=== PATIENT | female | born 1955 | race Caucasian/White ===

== ENCOUNTER → 2017-01-17 | Outpatient (CLI) | payer BC ==
[~2017-01-17] MED LIST: CHOLTAB3 PO; CLON0.1T12 PO; FRCT/ PO; GABA-113 PO; GLUCTAB7 PO; LEVO75TA5 PO; METH750T PO; MULTTAB58 PO; NXM/40 PO; OXYC1TAB3 PO; TRAM-453 PO; TRIATAB3 PO; VITA100C4 PO
[2017-01-17 15:12] LABS: ALT/SGPT 18 U/L (12-78); BLOOD UREA NITROGEN 20 mg/dl (7-18); BUN/CREATININE RATIO 27.7 (10-20); CALCIUM 9.4 mg/dl (8.5-10.1); CARBON DIOXIDE 22 mmol/L (21-32); CHLORIDE 110 mmol/L (98-107); CHOLESTEROL 185 mg/dl (0-200); CREATININE 0.71 mg/dl (0.60-1.20); GLUCOSE 113 mg/dl (70-99); POTASSIUM 3.6 mmol/L (3.5-5.1); SODIUM 141 mmol/L (136-145); TRIGLYCERIDES 218 mg/dl (0-150); VERY LOW DENSITY LIPOPROT CALC 44 mg/dl
[2017-01-17 15:22] LABS: ALB/GLOB RATIO 1.2 (0.9-2); ALKALINE PHOSPHATASE 96 U/L (45-117); AST/SGOT 15 U/L (15-37); CHOLESTEROL/HDL RATIO 3.8; HDL CHOLESTEROL 49 mg/dl; LDL CHOLESTEROL CALCULATED 92 mg/dl
== END | disposition home or self-care (01) ==
LOC: C.LAB1850 13:51
PROVIDERS: ATTEND Internal Medicine Cardiovascular Disease
DX: R73.9 Hyperglycemia, unspecified (principal); E03.9 Hypothyroidism, unspecified

== ENCOUNTER → 2017-01-23 | Outpatient (CLI) | payer BC ==
[~2017-01-23] MED LIST changes: +GADAVIST IV PRN
--- NOTE | 2017-01-23 13:19 | DIAGNOSTIC IMAGING REPORT ---
MRI OF THE LUMBAR SPINE WITH AND WITHOUT CONTRAST CLINICAL HISTORY: Lumbar stenosis. Sacral radiculopathy. COMPARISON STUDY: Lumbar spine MRI December 28, 2011. TECHNIQUE: Utilizing a 1.5 Mari magnet and dedicated coil, multiplanar, multiecho imaging of the lumbar spine was performed before and after uneventful IV administration of 7 mL of Gadavist. FINDINGS: For purposes of numbering on this exam, the L5-S1 disc space is assigned to axial image 27 of 30. A multilevel laminectomy is noted. There are are bilateral pedicle screws at the T11, T12, L3, L4, L5 and S1 levels with a left-sided pedicle screw at the L2 level. No intracanalicular mass or fluid collection is present. Conus terminates at the L1 level. Evaluation is compromised by susceptibility artifact related to the hardware. Paravertebral soft tissues are unremarkable. Note is made of a 2.2 cm right renal cyst. Note is made of disc space narrowing with mild disc bulge and facet arthrosis at T10-T11 that likely results in mild narrowing of the central canal and right lateral recess. L1-2: There is marked disc space narrowing. Central canal and neural foramen are patent. L2-3: There is marked disc space narrowing with mild disc bulge. Central canal and neural foramen are patent. L3-4: There is marked disc space narrowing with disc bulge. Central canal and neural foramen are patent. L4-5: There is marked disc space narrowing. Central canal is patent. Neural foramen are likely patent. L5-S1: There is marked disc space narrowing with a central disc protrusion. There is mild during of the central canal. Neural foramen are suboptimally assessed but there is probable mild to moderate bilateral neural foraminal stenosis. IMPRESSION: 1. Status post multilevel laminectomy with a T11-S1 fusion. 2. No severe central canal stenosis. Mild central canal narrowing at T10-T11 and L5-S1, as described above. 3. Suboptimal evaluation of the neural foramen due to susceptibility artifact from hardware. Suspected mild to moderate multilevel neural foraminal stenosis, as detailed above. Electronically signed by: Vitaliy Golden M.D. 01/23/2017 1:17 PM Dictated Date/Time: 01/23/2017 11:35 AM
== END | disposition home or self-care (01) ==
LOC: C.MRI 10:13
PROVIDERS: ATTEND Psychiatry & Neurology Neurology
DX: M48.061 Spinal stenosis, lumbar region without neurogenic claudication (principal); M54.18 Radiculopathy, sacral and sacrococcygeal region

== ENCOUNTER 2018-10-20 12:20 | Inpatient (IN) ==
--- OUTSIDE RECORDS SUMMARY | 2018-10-20 12:21 | External Medical Summary | Continuity of Care Document ---
:1955 Author Name Ruiz Singletary, Provider Address Unavailable Unavailable , Care Team Providers Name Role Phone Kita Devine III, M.D. Unavailable [email or web address] Constantino Razo M.D. Unavailable [email or web address] Zander FERREIRA Unavailable Unavailable Unavailable Unavailable Unavailable Problems Carpal tunnel syndrome (354.0) (G56.00) Sacral radiculopathy (724.4) (M54.18) Tobacco use (305.1) (Z72.0) Chronic musculoskeletal pain (729.1) (M79.18) Lumbar canal stenosis (724.02) (M48.061) Hypertension (401.9) (I10) Hyperglycemia (790.29) (R73.9) Hypothyroidism (244.9) (E03.9) Current every day smoker (305.1) (F17.200) Smokes less than 1/2 pack per day (305.1) (F17.210) Common migraine without aura (346.10) (G43.009) Allergies and Adverse Reactions Ativan TABS (Allergy) CeleBREX CAPS (Allergy) Medications Methocarbamol 750 MG Oral Tablet; TAKE 1 TABLET 3 TIME S DAILY. Nilson HOLDEN M.D. E. PJenelle Quantity: 270 Refills: 1 Levothyroxine Sodium 75 MCG Oral Tablet; TAKE 1 TABLET DAILY. Gemini Razo Quantity: 90 Refills: 3 Gabapentin 600 MG Oral Tablet; TAKE 1 TABLET 4 TIMES DAILY. Nilson HOLDEN M.D. E. PJenelle Quantity: 360 Refills: 1 Triamterene-HCTZ 37.5-25 MG Oral Capsule; 1 tablet by mouth every other day Gemini Razo Quantity: 45 Refills: 3 cloNIDine HCl - 0.1 MG Oral Tablet; TAKE 1 TABLET AT B EDTIME. Gemini Razo Quantity: 90 Refills: 3 Meloxicam 7.5 MG Oral Tablet; Take 1 tablet daily Zander Devine III E. P. Start: 18-Feb-2011 Quantity: 90 Refills: 1 Glucosamine-Chondroitin TABS; Take 1 tablet twice daily Refills: 0 Bcsxeavcsg-KUKV-Yeyietwl 50-325-40 MG Oral Tablet; ELFGEO E 1 TABLET Daily PRN Nilson HOLDEN M.D. E. P. Quantity: 90 Refills: 1 Esomeprazole Magnesium 40 MG Oral Capsul e Delayed Release; TAKE 1 CAPSULE DAILY. Gemini Razo Start: 23-May-2011 Quantity: 90 Refills: 3 traMADol HCl - 50 MG Oral Tablet; TAKE 1 -2 TABLETS up to 3 times daily as needed for joint and back pain Gemini Razo Start: 24-Jun-2013 Quantity: 180 Refills: 3 Topiramate 50 MG Oral Tablet; Take 1 tablet twice daily Nilson HOLDEN M.D. E. P. Start: 27-Oct-2015 Quantity: 180 Refills: 1 Procedures History of Neuroplasty Decompression Median Status: Completed 30-Jun-2010 0:00 Nerve At Carpal Tunnel Immunizations Influenza On: 18-Jan-2011 13:30 Lot #: [id number], [employer] Fluzone INJ On: 31-Mar-2014 Zoster (Zostavax) On: 31-Mar-2014 Influenza (Whole) On: 15-Jan-2015 10:49 Lot #: [id number], [employer] Fluzone High-Dose Intramuscular Suspension On: 14-Jan-2016 1 2:06 Lot #: [id number], [employer] Fluzone High-Dose Intramuscular Suspension On: 17-Jan-2017 13 :48 Lot #: [id number], [employer] Fluzone Quadrivalent 0.5 ML Intramuscular Suspension On: Jan-2018 13:36 Lot #: [id number], [employer] Family History Mother No pertinent family history (V49.89) (Z78.9) Status: Active Social History - Smoking Status Current every day smoker Plan of Treatment Planned Encounters Appointment; Camilo Razo M.D. Start: 19-Feb-2019 13:00 Request Planned Observations Planned Goals not documented Results No Known Results Results not documented Encounters Appointment; Camilo Razo M.D. 13-Feb-2018 12:45 Encounter Diagnosis: Problem not documented Appointment; Kita Devine III, M.D. 11-Oct-2017 15:30 Encounter Diagnosis: Problem not documented Appointment; Camilo Razo M.D. 17-Jan-2017 13:00 Encounter Diagnosis: Problem not documented Appointment; Kita Devine III, M.D. 04-Jan-2017 15:00 Encounter Diagnosis: Problem not documented Appointment; Kita Devine III, M.D. 15-Dec-2016 11:30 Encounter Diagnosis: Problem not documented Appointment; Camilo Razo M.D. 19-Feb-2019 13:00 Encounter Diagnosis: Problem not documented
--- NOTE | 2018-10-20 12:32 | CT Scan Report ---
HEAD CT NONCONTRAST CT DOSE: 623.48 mGy.cm HISTORY: Stroke symptoms. Stroke evaluation TECHNIQUE: Multiaxial CT images of the head were performed without the use of intravenous contrast. A utomated exposure control was utilized for this study. A dose lowering technique was utilized adheri ng to the principles of ALARA. Comparison: None. Findings: The paranasal sinuses and mastoid air cells are clear. The calvarium and skull base are int act. The ventricles and sulci are within normal limits. There is no mass, hematoma, midline shift, or acute infarct. Impression: No acute intracranial abnormality. Electronically signed by: Jere Muniz M.D. 10/20/2018 12:31 PM
[2018-10-20] MEDS ORDERED: ASPIRIN CHEW 324 MG ONE (12:45)
[2018-10-20 12:48] LABS: Basophils # (auto) 0.03 K/uL (0-0.2); Basophils % (auto) 0.5 %; Eosinophils # (auto) 0.14 K/uL (0-0.5); Eosinophils % (auto) 2.2 %; Hematocrit (blood only) 46.1 % (37-47); Hemoglobin 15.5 g/dL (12.0-16.0); Immature Granulocytes # (auto) 0.01 K/uL (0.00-0.02); Immature Granulocytes % (auto) 0.2 %; Lymphocytes # (auto) 2.17 K/uL (1.2-3.4); Lymphocytes % (auto) 34.4 %; Mean Corpuscular Hgb Conc 33.6 g/dL (32-36); Mean Corpuscular Volume 102.2 fL (80-100); Mean Platelet Volume 9.2 fL (7.4-10.4); Monocytes # (auto) 0.58 K/uL (0.11-0.59); Monocytes % (auto) 9.2 %; Neutrophils # (auto) 3.37 K/uL (1.4-6.5); Neutrophils % (auto) 53.5 %; Platelet Count 258 K/uL (130-400); RDW Coefficient of Variation 12.5 % (11.5-14.5); RDW Standard Deviation 46.6 fL (36.4-46.3); Red Blood Count 4.51 M/uL (4.2-5.4)
[2018-10-20 12:52] LABS: iSTAT Creatinine 0.9 mg/dl (0.6-1.3); iSTAT Hemoglobin 15.3 g/dl (12.0-16.0); iSTAT Ionized Calcium 1.18 mmol/l (1.12-1.32); iSTAT Potassium 4.5 mEq/L (3.3-5.0)
[2018-10-20] MEDS ORDERED: ASPIRIN CHEW 324 MG PO STA (12:57)
[2018-10-20] MEDS ORDERED: SODIUM CHLORIDE 0.9% 1000ML 1,000 ML IV ONE ×2 (12:57→15:17)
--- NOTE | 2018-10-20 13:08 | XRay Report ---
XR chest 1V portable HISTORY: weakness COMPARISON: Chest 10/20/2018. FINDINGS: Thoracolumbar posterior fusion spinal rods are noted. Distal resection of the right clavicl e. The lungs are clear. The heart is normal in size. No pleural effusions. No pneumothorax. IMPRESSION: No acute process. Electronically signed by: Jere Muniz M.D. 10/20/2018 1:06 PM
[2018-10-20 13:17] LABS: Alanine Aminotransferase 20 U/L (12-78); Albumin Globulin Ratio 1.1 (0.9-2); Albumin Level 3.8 gm/dl (3.4-5.0); Alkaline Phosphatase 104 U/L (45-117); BUN Creatinine Ratio 23.2 (10-20); Bilirubin,Total 0.5 mg/dl (0.2-1); Blood Urea Nitrogen 21 mg/dl (7-18); Calcium 9.3 mg/dl (8.5-10.1); Carbon Dioxide 27 mmol/L (21-32); Chloride 110 mmol/L (98-107); Creatinine Clr Calc Pharmacy 63.6 ml/min; Est GFR (African American) 76.3; Est GFR (Non-African American) 65.8; Globulin 3.5 gm/dl (2.5-4.0); Glucose 112 mg/dl (70-99); Total Protein 7.3 gm/dl (6.4-8.2); Troponin I < 0.015 ng/ml (0-0.045)
[2018-10-20 13:24] LABS: INR 1.1 (0.9-1.1); Partial Thromboplastin Time 26.5 Seconds (21.0-31.0); Prothrombin Time 11.4 Seconds (9.0-12.0)
[2018-10-20 13:30] LABS: Aspartate Aminotransferase 14 U/L (15-37); Magnesium 2.2 mg/dl (1.8-2.4); Potassium 4.3 mmol/L (3.5-5.1); Sodium 144 mmol/L (136-145)
[2018-10-20] MEDS ORDERED: OPTIRAY 320 125ml IV PRN (14:09)
--- NOTE | 2018-10-20 14:38 | CT Scan Report ---
HEAD & NECK CTA HISTORY: aphasia, R weakness TECHNIQUE: Multiaxial CT images of the head were performed following the intravenous administration o f contrast to evaluate the major cerebral vessels. Multiaxial CT images of the neck were also perform ed following the intravenous administration of contrast to evaluate the major cervical vessels. Maxim um intensity projection images were also obtained. A dose lowering technique was utilized adhering to the principles of ALARA. COMPARISON: Head CT 10/20/2018. FINDINGS: There is no mass, hematoma, midline shift, or acute infarct. Visualized intracranial internal carotid arteries, distal vertebral arteries, and basilar artery are widely patent. There is no significant s tenosis, occlusion, or aneurysm seen within the bilateral ACAs, MCAs, or sewer pipe layer. The posterior cerebral arteries are fed primarily through the posterior communicating arteries consistent with a normal min iant. The aortic arch and proximal great vessels are widely patent. There is no significant stenosis, occ lusion, or dissection identified within the bilateral common carotid, internal carotid, or vertebral arteries. Incidental note is made of an aberrant right subclavian artery. Mild calcified plaque withi n the right carotid bifurcation. IMPRESSION: 1. No significant stenosis, occlusion, or aneurysm within the [place]. 2. No significant stenosis, occlusion, or dissection identified within the carotid or vertebral arter ies.. 3. Incidental note is made of an aberrant right subclavian artery. Electronically signed by: Jere Muniz M.D. 10/20/2018 2:37 PM
--- NOTE | 2018-10-20 14:38 | CT Scan Report ---
HEAD & NECK CTA HISTORY: aphasia, R weakness TECHNIQUE: Multiaxial CT images of the head were performed following the intravenous administration o f contrast to evaluate the major cerebral vessels. Multiaxial CT images of the neck were also perform ed following the intravenous administration of contrast to evaluate the major cervical vessels. Maxim um intensity projection images were also obtained. A dose lowering technique was utilized adhering to the principles of ALARA. COMPARISON: Head CT 10/20/2018. FINDINGS: There is no mass, hematoma, midline shift, or acute infarct. Visualized intracranial internal carotid arteries, distal vertebral arteries, and basilar artery are widely patent. There is no significant s tenosis, occlusion, or aneurysm seen within the bilateral ACAs, MCAs, or stitch cleaner. The posterior cerebral arteries are fed primarily through the posterior communicating arteries consistent with a normal min iant. The aortic arch and proximal great vessels are widely patent. There is no significant stenosis, occ lusion, or dissection identified within the bilateral common carotid, internal carotid, or vertebral arteries. Incidental note is made of an aberrant right subclavian artery. Mild calcified plaque withi n the right carotid bifurcation. IMPRESSION: 1. No significant stenosis, occlusion, or aneurysm within the [place]. 2. No significant stenosis, occlusion, or dissection identified within the carotid or vertebral arter ies.. 3. Incidental note is made of an aberrant right subclavian artery. Electronically signed by: Jere Muniz M.D. 10/20/2018 2:37 PM
--- NOTE | 2018-10-20 14:52 | Emergency Department Note ---
Entered by Shabana Mcclendon acting as a scribe for Abhinav Leal M.D. History of Present Illness General Chief complaint: Stroke Alert Stated complaint: stroke alert Source: patient and EMS Mode of arrival: EMS Limitations: no limitations History of Present Illness Provider complaint: Stroke Onset (ago): hour(s) (this morning) Location: head Radiation: non-radiation Pain Consistency: + other (episode) Maximum Pain Intensity: 0 Quality: + other (stroke) Associated symptoms: + weakness (difficulty moving right side) and + other (Additional symptoms: difficulty speaking, upset stomach. Denies: pain) Treatments prior to arrival: none The patient is a 62 year old female with no significant past medical history who presents to the Emergency Room with complaints of an episode of a stroke occurring this morning. Per EMS, the patient's roommate stated that the patient went to bed around 0100 this morning, which was normal for her. The roommate reportedly noticed that the patient had difficulty speaking and moving her right side when she woke up around 1045. EMS was subsequently called and a stroke alert was made. The patient reports that her stomach was upset earlier today but denies any pain and trauma. EMS notes that she is not on blood thinners and other platelet agents. Home Medications Home Medications Medication Instructions Recorded Confirmed Type ascorbic acid (vitamin C) [Vitamin 1,000 mg PO DAILY 10/20/18 10/20/18 History C] calcium carbonate [Calcium 600] 600 mg PO DAILY 10/20/18 10/20/18 History clonidine HCl 0.1 mg PO HS 10/20/18 10/20/18 History esomeprazole magnesium 40 mg PO DAILY 10/20/18 10/20/18 History gabapentin 60 mg PO QID 10/20/18 10/20/18 History glucos sul [id number] 1 cap PO DAILY 10/20/18 10/20/18 History [Glucosamine Chondroitin] levothyroxine 75 mcg PO DAILY 10/20/18 10/20/18 History meloxicam 7.5 mg PO DAILY 10/20/18 10/20/18 History methocarbamol 750 mg PO TID 10/20/18 10/20/18 History multivitamin 1 tab PO DAILY 10/20/18 10/20/18 History topiramate 50 mg PO BID 10/20/18 10/20/18 History tramadol 50 - 100 mg PO TID PRN 10/20/18 10/20/18 History triamterene-hydrochlorothiazid 1 tab PO DAILY 10/20/18 10/20/18 History vitamin E 0 unit PO DAILY 10/20/18 10/20/18 History Allergies Allergy/AdvReac Type Severity Reaction Status Date / Time celecoxib AdvReac Unknown elevates Unverified 10/20/18 12:59 blood pressure rofecoxib AdvReac Unknown elevates Unverified 10/20/18 12:59 blood pressure Past Med/Surg History Medical History No significant past medical history Social History Preferred Language: Citizen Of The [place] Communication Ability: Effective Communication Ability Comment: some slurring, able to sign name Outpatient Physical Therapist Assistant Required: No Beliefs That Will Affect Care: None marital status: single Current Living Situation: Significant Other Current Living Situation Comment: Lives with Alexandria Gordon, friend current occupational status: retired Other Information That Helps Us Care for You: No Feels Safe at Home: Yes Safety Concerns: Feels Safe At This Time Smoking Status: Current every day smoker Tobacco Type: cigarettes Cigarettes Per Day: 6 tp 7 Do You Dip or Chew Tobacco: No Second Hand Exposure: No Tobacco Cessation Education Requested by Patient: No Hx Alcohol Use: Yes Hx Substance Use: No Review of Systems See HPI for pertinent positives & negatives. and A total of 10 systems reviewed and were otherwise negative Physical Exam Vital Signs Vital Signs - 24 hr 10/20/18 12:06 10/20/18 12:08 10/20/18 12:19 Temperature 36.7 C 36.8 C Temperature Source Oral Oral Sepsis Recent Fever Within 48 Hours No Sepsis New/Unexplained Change in Mental Status No Sepsis Action Taken by Nursing No Action Required Pulse Rate 66 Pulse Rate [Right Finger] 62 Pulse Rate from SpO2 Sensor Pulse Strength Normal Respiratory Rate 58 H 18 Respiratory Effort / Characteristics Non-Labored Spontaneous Non-Labored Spontaneous Respiratory Depth Normal Normal Respiratory Pattern Regular Regular Blood Pressure 154/96 H Blood Pressure [Left Arm] 145/71 H Blood Pressure Mean 115 Blood Pressure Mean [Left Arm] 95 Blood Pressure Position Lying Blood Pressure Position [Left Arm] Lying Pulse Oximetry 97 98 97 Oxygen Delivery Method Room Air Room Air Room Air 10/20/18 12:36 10/20/18 12:37 10/20/18 12:41 Temperature 36.7 C Temperature Source Sepsis Recent Fever Within 48 Hours Sepsis New/Unexplained Change in Mental Status Sepsis Action Taken by Nursing Pulse Rate 60 61 58 L Pulse Rate [Right Finger] Pulse Rate from SpO2 Sensor 61 61 59 L Pulse Strength Respiratory Rate 15 16 16 Respiratory Effort / Characteristics Respiratory Depth Respiratory Pattern Blood Pressure 154/96 H 145/71 H 166/85 H Blood Pressure [Left Arm] Blood Pressure Mean 115 95 112 Blood Pressure Mean [Left Arm] Blood Pressure Position Blood Pressure Position [Left Arm] Pulse Oximetry 96 98 97 Oxygen Delivery Method Room Air Room Air Room Air 10/20/18 12:50 10/20/18 13:00 10/20/18 13:10 Temperature Temperature Source Sepsis Recent Fever Within 48 Hours Sepsis New/Unexplained Change in Mental Status Sepsis Action Taken by Nursing Pulse Rate 60 63 59 L Pulse Rate [Right Finger] Pulse Rate from SpO2 Sensor 59 L 61 57 L Pulse Strength Respiratory Rate 16 17 17 Respiratory Effort / Characteristics Respiratory Depth Respiratory Pattern Blood Pressure 154/101 H 146/99 H 181/103 H Blood Pressure [Left Arm] Blood Pressure Mean 118 114 129 Blood Pressure Mean [Left Arm] Blood Pressure Position Blood Pressure Position [Left Arm] Pulse Oximetry 98 97 98 Oxygen Delivery Method Room Air Room Air 10/20/18 13:20 10/20/18 13:22 10/20/18 13:30 Temperature 36.8 C Temperature Source Sepsis Recent Fever Within 48 Hours Sepsis New/Unexplained Change in Mental Status Sepsis Action Taken by Nursing Pulse Rate 70 65 55 L Pulse Rate [Right Finger] Pulse Rate from SpO2 Sensor 65 63 54 L Pulse Strength Respiratory Rate 25 H 13 16 Respiratory Effort / Characteristics Respiratory Depth Respiratory Pattern Blood Pressure 170/101 H Blood Pressure [Left Arm] Blood Pressure Mean 124 Blood Pressure Mean [Left Arm] Blood Pressure Position Blood Pressure Position [Left Arm] Pulse Oximetry 98 98 99 Oxygen Delivery Method 10/20/18 13:31 10/20/18 13:32 10/20/18 13:38 Temperature Temperature Source Sepsis Recent Fever Within 48 Hours Sepsis New/Unexplained Change in Mental Status Sepsis Action Taken by Nursing Pulse Rate 60 58 L 56 L Pulse Rate [Right Finger] Pulse Rate from SpO2 Sensor 58 L 58 L 54 L Pulse Strength Respiratory Rate 16 19 17 Respiratory Effort / Characteristics Respiratory Depth Respiratory Pattern Blood Pressure 183/125 H 183/102 H Blood Pressure [Left Arm] Blood Pressure Mean 144 129 Blood Pressure Mean [Left Arm] Blood Pressure Position Blood Pressure Position [Left Arm] Pulse Oximetry 98 99 99 Oxygen Delivery Method Room Air Room Air 10/20/18 13:40 10/20/18 13:41 10/20/18 14:15 Temperature 36.7 C Temperature Source Sepsis Recent Fever Within 48 Hours Sepsis New/Unexplained Change in Mental Status Sepsis Action Taken by Nursing Pulse Rate 59 L 60 81 Pulse Rate [Right Finger] Pulse Rate from SpO2 Sensor 54 L 57 L 120 H Pulse Strength Respiratory Rate 16 17 16 Respiratory Effort / Characteristics Respiratory Depth Respiratory Pattern Blood Pressure 192/99 H Blood Pressure [Left Arm] Blood Pressure Mean 130 Blood Pressure Mean [Left Arm] Blood Pressure Position Blood Pressure Position [Left Arm] Pulse Oximetry 100 100 79 L Oxygen Delivery Method Room Air Room Air Room Air 10/20/18 14:17 10/20/18 14:20 10/20/18 14:30 Temperature Temperature Source Sepsis Recent Fever Within 48 Hours Sepsis New/Unexplained Change in Mental Status Sepsis Action Taken by Nursing Pulse Rate 58 L 60 65 Pulse Rate [Right Finger] Pulse Rate from SpO2 Sensor 55 L 59 L 61 Pulse Strength Respiratory Rate 16 18 13 Respiratory Effort / Characteristics Respiratory Depth Respiratory Pattern Blood Pressure 179/96 H 170/95 H Blood Pressure [Left Arm] Blood Pressure Mean 123 120 Blood Pressure Mean [Left Arm] Blood Pressure Position Blood Pressure Position [Left Arm] Pulse Oximetry 100 99 98 Oxygen Delivery Method Room Air Room Air 10/20/18 14:31 10/20/18 15:11 10/20/18 15:21 Temperature Temperature Source Sepsis Recent Fever Within 48 Hours Sepsis New/Unexplained Change in Mental Status Sepsis Action Taken by Nursing Pulse Rate 60 62 64 Pulse Rate [Right Finger] Pulse Rate from SpO2 Sensor 59 L 56 L 56 L Pulse Strength Respiratory Rate 16 17 19 Respiratory Effort / Characteristics Respiratory Depth Respiratory Pattern Blood Pressure 169/98 H 145/102 H 176/113 H Blood Pressure [Left Arm] Blood Pressure Mean 121 116 134 Blood Pressure Mean [Left Arm] Blood Pressure Position Blood Pressure Position [Left Arm] Pulse Oximetry 98 99 100 Oxygen Delivery Method GENERAL: Awake, alert, in no distress HENT: Normocephalic, atraumatic. EYES: Normal conjunctiva. Sclera non-icteric. PERRL. NECK: Supple. No nuchal rigidity. RESPIRATORY: Clear to auscultation. No wheezes. Normal respiratory effort. CARDIAC: Normal rate. Normal rhythm. Extremities warm and well perfused. GI: Soft, non-distended. No tenderness to palpation. No rebound or guarding. No masses. RECTAL: Deferred. MUSCULOSKELETAL: Atraumatic. Chest examination reveals no tenderness. LOWER EXTREMITIES: Calves are equal size bilaterally and non-tender. No edema NEURO: Slight R facial droop. Moderate dysarthria. Slight weakness of the right upper and lower extremity. Slight decreased sensation of left face. Decreased sensation of LUE -reported chronic. SKIN: Warm and dry. No rash or jaundice noted. Course 1213: I notified Sharmin Jimenez of the patient's case. 1222: The patient was immediately sent to CT upon arrival. 1227: The patient was evaluated in room B1, and a complete history and physical examination were performed. 1238: I reviewed the patient's case with Dr. Doty. She recommended aspirin and a stroke workup. 1445: I [facility] the [facility] Dr. Najera will evaluate the patient for further management. 1453: I reviewed the patient's case with Dr. Johnny Campbell [facility]. Dr. Turner recommended touching base with [place] again. 1516: I reviewed the patient's case with Dr. Doty. Dr. Doty recommends a fluid bolus and Plavix. 1715: I checked on the patient and updated her on her MRI results. Consultations Consultation #1: 1213: I notified Sharmin Jimenez of the [place] [facility]'s case. Time: 12:13 Consultation #2: I reviewed the patient's case with Dr. Doty. She recommended aspirin and a stroke workup. Time: 12:38 Consultation #3: I reviewed the patient's case [facility]. Dr. Najera will evaluate the patient for further management. Time: 14:45 Additional Consultation(s): 1453: I reviewed the patient's case with Dr. Johnny Campbell [facility]. Dr. Turner recommended touching base with [place] again. 1516: I reviewed the patient's case with Dr. Doty. Dr. Doty recommends a fluid bolus and Plavix. Administered Medications Ioversol (Optiray 320 125ml) 119 ml IV ONCE PRN PRN Reason: Interaction Checking Stop: 10/24/18 14:08 Last Admin: 10/20/18 14:09 Dose: 119 ml Documented by: [id number] Discontinued Medications Aspirin (Aspirin) Confirm Administered Dose 324 mg .ROUTE .STK-MED ONE Stop: 10/20/18 12:46 Last Admin: 10/20/18 13:25 Dose: Not Given Documented by: [id number] Aspirin (Aspirin) 324 mg PO NOW STA Stop: 10/20/18 12:58 Last Admin: 10/20/18 12:57 Dose: 324 mg Documented by: [id number] Clopidogrel Bisulfate (Plavix) 600 mg PO NOW STA Stop: 10/20/18 15:19 Last Admin: 10/20/18 17:15 Dose: Not Given Documented by: [id number] Clopidogrel Bisulfate (Plavix) Confirm Administered Dose 600 mg .ROUTE .STK-MED ONE Stop: 10/20/18 17:13 Last Admin: 10/20/18 17:15 Dose: 600 mg Documented by: [id number] Sodium Chloride (Nss 1000ml) 1,000 mls @ 999 mls/hr IV .Q1H1M ONE Stop: 10/20/18 13:57 Last Infusion: 10/20/18 14:28 Dose: 0 mls/hr Documented by: [id number] Admin: 10/20/18 12:57 Dose: 999 mls/hr Documented by: [id number] Sodium Chloride (Nss 1000ml) 1,000 mls @ 999 mls/hr IV .Q1H1M ONE Stop: 10/20/18 16:17 Last Admin: 10/20/18 15:37 Dose: 999 mls/hr Documented by: [id number] Tramadol HCl (Ultram) 50 mg PO NOW STA Stop: 10/20/18 17:03 Last Admin: 10/20/18 17:15 Dose: 50 mg Documented by: [id number] Medical Decision Making Differential Diagnosis Differential diagnosis: Etiologies such as metabolic, infection, hypoglycemia, electrolyte abnormalities, cardiac sources, intracerebral event, toxicologic, neurologic, as well as others were entertained. Medical Records Attestation: I reviewed the patient's medical records. Home Medications Current Medication List: was personally reviewed by me Laboratory Data Attestation: I reviewed the patient's lab results. Result diagrams: 10/20/18 12:32 10/20/18 12:32 Lab Results 10/20/18 10/20/18 10/20/18 Range/Units 12:08 12:32 12:32 WBC 6.30 (4.8-10.8) K/uL RBC 4.51 (4.2-5.4) M/uL Hgb 15.5 (12.0-16.0) g/dL POC Hgb (12.0-16.0) g/dl Hct 46.1 (37-47) % POC Hct (37-47) % MCV 102.2 H (80-100) fL MCH 34.4 H (25-34) pg MCHC 33.6 (32-36) g/dL RDW Std Deviation 46.6 H (36.4-46.3) fL RDW Coeff of [place] 12.5 (11.5-14.5) % Plt Count 258 (130-400) K/uL MPV 9.2 (7.4-10.4) fL Immature Gran % (Auto) 0.2 % Neut % (Auto) 53.5 % Lymph % (Auto) 34.4 % Frio % (Auto) 9.2 % Eos % (Auto) 2.2 % Baso % (Auto) 0.5 % Immature Gran # (Auto) 0.01 (0.00-0.02) K/uL Neut # (Auto) 3.37 (1.4-6.5) K/uL Lymph # (Auto) 2.17 (1.2-3.4) K/uL Frio # (Auto) 0.58 (0.11-0.59) K/uL Eos # (Auto) 0.14 (0-0.5) K/uL Baso # (Auto) 0.03 (0-0.2) K/uL PT 11.4 (9.0-12.0) Seconds INR 1.1 (0.9-1.1) APTT 26.5 (21.0-31.0) Seconds PTT Ratio 1.0 POC Sodium (135-144) mEq/L Sodium (136-145) mmol/L POC Potassium (3.3-5.0) mEq/L Potassium (3.5-5.1) mmol/L POC Chloride (101-112) mEq/L Chloride (98-107) mmol/L Carbon Dioxide (21-32) mmol/L POC Total CO2 (24-31) mEq/l Anion Gap (3-11) POC Anion Gap (16-25) mmol/L POC BUN (7-18) mg/dl BUN (7-18) mg/dl Creatinine (0.6-1.2) mg/dl POC Creatinine (0.6-1.3) mg/dl Est Cr Clr Drug Dosing ml/min Est GFR ( Amer) Est GFR (Non-Af Amer) BUN/Creatinine Ratio (10-20) Glucose (70-99) mg/dl POC Glucose (other) (70-99) mg/dl Calcium (8.5-10.1) mg/dl POC Ioniz Calcium Hernandez (1.12-1.32) mmol/l Magnesium (1.8-2.4) mg/dl Total Bilirubin (0.2-1) mg/dl AST (15-37) U/L ALT (12-78) U/L Alkaline Phosphatase (45-117) U/L Troponin I (0-0.045) ng/ml Total Protein (6.4-8.2) gm/dl Albumin (3.4-5.0) gm/dl Globulin (2.5-4.0) gm/dl Albumin/Globulin Ratio (0.9-2) Urine Color Urine Appearance (Clear) Urine pH (4.5-7.5) Ur Specific [place] (1.000-1.030) Urine Protein (Negative) Urine Glucose (UA) (Negative) Urine Ketones (Negative) Urine Blood (Negative) Urine Nitrite (Negative) Urine Bilirubin (Negative) Urine Urobilinogen (Negative) Ur Leukocyte Esterase (Negative) Blood Type O Positive Antibody Screen NEGATIVE 10/20/18 10/20/18 10/20/18 Range/Units 12:32 12:37 15:36 WBC (4.8-10.8) K/uL RBC (4.2-5.4) M/uL Hgb (12.0-16.0) g/dL POC Hgb 15.3 (12.0-16.0) g/dl Hct (37-47) % POC Hct 45 (37-47) % MCV (80-100) fL MCH (25-34) pg MCHC (32-36) g/dL RDW Std Deviation (36.4-46.3) fL RDW Coeff of [place] (11.5-14.5) % Plt Count (130-400) K/uL MPV (7.4-10.4) fL Immature Gran % (Auto) % Neut % (Auto) % Lymph % (Auto) % Frio % (Auto) % Eos % (Auto) % Baso % (Auto) % Immature Gran # (Auto) (0.00-0.02) K/uL Neut # (Auto) (1.4-6.5) K/uL Lymph # (Auto) (1.2-3.4) K/uL Frio # (Auto) (0.11-0.59) K/uL Eos # (Auto) (0-0.5) K/uL Baso # (Auto) (0-0.2) K/uL PT (9.0-12.0) Seconds INR (0.9-1.1) APTT (21.0-31.0) Seconds PTT Ratio POC Sodium 143 (135-144) mEq/L Sodium 144 (136-145) mmol/L POC Potassium 4.5 (3.3-5.0) mEq/L Potassium 4.3 (3.5-5.1) mmol/L POC Chloride 108 (101-112) mEq/L Chloride 110 H (98-107) mmol/L Carbon Dioxide 27 (21-32) mmol/L POC Total CO2 24 (24-31) mEq/l Anion Gap 6.0 (3-11) POC Anion Gap 16.0 (16-25) mmol/L POC BUN 23 H (7-18) mg/dl BUN 21 H (7-18) mg/dl Creatinine 0.92 (0.6-1.2) mg/dl POC Creatinine 0.9 (0.6-1.3) mg/dl Est Cr Clr Drug Dosing 63.6 ml/min Est GFR ( Amer) 76.3 Est GFR (Non-Af Amer) 65.8 BUN/Creatinine Ratio 23.2 H (10-20) Glucose 112 H (70-99) mg/dl POC Glucose (other) 115 H (70-99) mg/dl Calcium 9.3 (8.5-10.1) mg/dl POC Ioniz Calcium Hernandez 1.18 (1.12-1.32) mmol/l Magnesium 2.2 (1.8-2.4) mg/dl Total Bilirubin 0.5 (0.2-1) mg/dl AST 14 L (15-37) U/L ALT 20 (12-78) U/L Alkaline Phosphatase 104 (45-117) U/L Troponin I < 0.015 (0-0.045) ng/ml Total Protein 7.3 (6.4-8.2) gm/dl Albumin 3.8 (3.4-5.0) gm/dl Globulin 3.5 (2.5-4.0) gm/dl Albumin/Globulin Ratio 1.1 (0.9-2) Urine Color Yellow Urine Appearance Clear (Clear) Urine pH 7.0 (4.5-7.5) Ur Specific [place] 1.024 (1.000-1.030) Urine Protein Negative (Negative) Urine Glucose (UA) Negative (Negative) Urine Ketones Negative (Negative) Urine Blood Negative (Negative) Urine Nitrite Negative (Negative) Urine Bilirubin Negative (Negative) Urine Urobilinogen Negative (Negative) Ur Leukocyte Esterase Negative (Negative) Blood Type Antibody Screen Imaging Data Radiologist's Impression: Radiology results as stated below per my review and th e radiologist's interpretation: XR chest 1V portable HISTORY: weakness COMPARISON: Chest 10/20/2018. FINDINGS: Thoracolumbar posterior fusion spinal rods are noted. Distal resection of the right clavicle. The lungs are clear. The heart is normal in size. No pleural effusions. No pneumothorax. IMPRESSION: No acute process. Electronically signed by: Jere Muniz M.D. 10/20/2018 1:[address]AST CT DOSE: 623.48 mGy.cm HISTORY: Stroke symptoms. Stroke evaluation TECHNIQUE: Multiaxial CT images of the head were performed without the use of intravenous contrast. Automated exposure control was utilized for this study. A dose lowering technique was utilized adhering to the principles of ALARA. Comparison: None. Findings: The paranasal sinuses and mastoid air cells are clear. The calvarium and skull base are intact. The ventricles and sulci are within normal limits. There is no mass, hematoma, midline shift, or acute infarct. Impression: No acute intracranial abnormality. Electronically signed by: Jere Muniz M.D. 10/20/2018 12:31 PM HEAD & NECK CTA HISTORY: aphasia, R weakness TECHNIQUE: Multiaxial CT images of the head were performed following the intravenous administration of contrast to evaluate the major cerebral vessels. Multiaxial CT images of the neck were also performed following the intravenous administration of contrast to evaluate the major cervical vessels. Maximum intensity projection images were also obtained. A dose lowering technique was utilized adhering to the principles of ALARA. COMPARISON: Head CT 10/20/2018. FINDINGS: There is no mass, hematoma, midline shift, or acute infarct. Visualized intracranial internal carotid arteries, distal vertebral arteries, and basilar artery are widely patent. There is no significant stenosis, occlusion, or aneurysm seen within the bilateral ACAs, MCAs, or production operations inspector. The posterior cerebral arteries are fed primarily through the posterior communicating arteries consistent with a normal variant. The aortic arch and proximal great vessels are widely patent. There is no significant stenosis, occlusion, or dissection identified within the bilateral common carotid, internal carotid, or vertebral arteries. Incidental note is made of an aberrant right subclavian artery. Mild calcified plaque within the right carotid bifurcation. IMPRESSION: 1. No significant stenosis, occlusion, or aneurysm within the [place]. 2. No significant stenosis, occlusion, or dissection identified within the carotid or vertebral arteries.. 3. Incidental note is made of an aberrant right subclavian artery. Electronically signed by: Jere Muniz M.D. 10/20/2018 2:37 PM MR brain wo con HISTORY: 62 years-old Female ?stroke, weakness/dysarthria acute strokelike symptoms COMPARISON: CT head, CTA head and neck of same day TECHNIQUE: Multiplanar multisequence MRI of the brain was obtained without the use of IV contrast. FINDINGS: Community Liaison Officer localizer images demonstrate no gross extracranial abnormality. Ill- defined 8 x 8 mm area of restricted diffusion about the left paramedian thalamus, image 13 series 5 is noted with mildly increased T2/FLAIR signal and slightly decreased signal on ADC map. No acute or subacute territorial infarct identified. There is no acute intracranial hemorrhage, midline shift, abnormal extra-axial collection, hydrocephalus or intracranial mass. Mild degree of patchy T2/flair hyperintensities about the white matter suggest chronic microvascular ischemic disease. There is a remote lacunar infarction noted about the inferior right cerebellar hemisphere. The major flow voids at the level of the skull base appear to be patent. Mastoid air cells are clear. Mild mucosal thickening about the frontal and ethmoid sinuses. T1 hypointense and slightly T1 hyperintense ovoid circumscribed lesion of the posterior left parietal scalp measures 1.5 x 0.9 cm. Skull and soft tissues are otherwise unremarkable. The orbits are also within normal limits. IMPRESSION: 1. Subcentimeter acute appearing lacunar infarction of the left thalamus. 2. No acute or subacute territorial infarction, midline shift, or acute intracranial hemorrhage. 3. Suggestion of mild chronic microvascular ischemic disease. The above report was generated using voice recognition software. It may contain grammatical, syntax or spelling errors. Electronically signed by: Jorge Keller M.D. 10/20/2018 4:25 PM ECG Data Attestation: I personally reviewed and interpreted this ECG as follows: Indication: other (stroke) Rate (beats per minute): 61 Rhythm: normal sinus Findings: + PAC; no ST depression and no ST elevation Blood Pressure Blood Pressure Findings: Elevated blood pressure Blood Pressure Disposition: further management by hospitalist MDM Narrative Patient is a 62-year-old female presenting via EMS after sudden onset of right- sided weakness and aphasia around 1045 this morning. No reported trauma or fever. No anticoagulant status reported. Discussed with EMS in route and patient was made a stroke alert. CT head without acute intracranial bleed. Patient with some dysarthria left-sided facial numbness and mild right-sided weakness. No significant pain or trauma reported. Tele-stroke was initiated for evaluation as well. Discussion with patient and her roommates they later states she went to bed at 1 AM and was found this way when she awoke this morning. Last known well places her outside of TPA window with this further information. Given a aspirin and a small fluid bolus. Do not believe this acutely cardiac. Basic laboratory studies without significant abnormality. CT angiogram of the head and neck were completed. Concerns for possible stroke persist but again outside TPA window. Discussed with the hospitalist for [facility] for further evaluation. MRI of the brain ordered in the meantime. Discussed with our neurologist that she did have some worsening of her speech symptoms while here. Patient failed dysphagia screen but did receive the chewed aspirin earlier. In discussion with our local neurologist as well as the tele- stroke neurologist and in discussion with them no acute utility for transfer given the lack of LVO or dissection. Fluid boluses ordered and initially ordered a Plavix load however delay given swallowing issues. Lack of additional route for this. Patient to MRI followed by admission by the hospitalist. MRI does show a lacunar stroke. Impression & Plan Stroke Discharge Plan Visit Data Chief Complaint: Stroke Alert Stated Complaint: stroke alert ED Provider: Abhinav Leal Discharge Problem: Stroke Patient Disposition: Admitted As Inpatient Discharge Problem: Stroke Qualifiers: CVA mechanism: unspecified Qualified Code(s): I63.9 - Cerebral infarction, unspecified The scribe's documentation has been prepared under my direction and personally reviewed by me in its entirety. I confirm that the note above accurately reflects all work, treatment, procedures, and medical decision making performed by me.
--- NOTE | 2018-10-20 15:08 | History & Physical Report ---
Date of Service October 20, 2018 Assessment & Plan (1) Stroke: 62 y/o F Hx HTN, migraines, hypothyroidism, spinal stenosis, chronic RUE undetermined etiology, chronic LUE numbness which followed elbow surgery. The pt woke up from sleep with an unsteady gait, slurred speech - expressive and receptive dysphasia and a R facial droop. She was brought to the ER by her partner. She was evaluated by telestroke on arrival, however, as she woke form sleep with her symptoms, a time of symptom onset could not be established and TPA was not employed. Nursing staff noted that her speech appeared to be worsening while in the ER as she seemed to develop complete aphasia for a short period. She did appear to recover her speech to near-normal at the time of medical evaluation however. Initial CT/CTA were negative for acute abnormalities. 1) CVA - at the advice of telestroke, she received both ASA and Plavix. She will be placed on a statin as well. She is assigned to telemetry with a CVA protocol and will be evaluated by the neurology service. We will hold all antihypertensives. 2) HTN - antihypertensives held as above. As she woke up with the CVA symptoms, we may want to DC her clonidine going forward. 3) Migraines - cont topiramate 4) Chronic back and UE pain - cont Gabapentin, PRN Tramadol 5) Advised on smoking cessation Full code, heparin prophylaxis - total time for this admit including review of labs, meds, imaging, records - discussion with pt and ER attending - 45 min Present on Admission?: Yes History of Present Illness Chief Complaint: Dysphasia, R weakness Primary Care Provider: NO PCP 62 y/o F Hx HTN, migraines, hypothyroidism, spinal stenosis, chronic RUE undetermined etiology, chronic LUE numbness which followed elbow surgery. The pt woke up from sleep with an unsteady gait, slurred speech - expressive and receptive dysphasia and a R facial droop. She was brought to the ER by her partner. She was evaluated by telestroke on arrival, however, as she woke form sleep with her symptoms, a time of symptom onset could not be established and TPA was not employed. Nursing staff noted that her speech appeared to be worsening while in the ER as she seemed to develop complete aphasia for a short period. She did appear to recover her speech to near-normal at the time of medical evaluation however. Initial CT/CTA were negative for acute abnormalities. PMH: 1) Spinal stenosis 2) Migraine headaches 3) Hypothyroidism 4) Chronic LUE numbness followed surgery on the arm 5) HTN 6) NSAID-induced gastritis, esophagitis, gastric ulcers 7) The pt takes Clonidine HS which she states she was prescribed for a forceful heart beat which was causing insomnia. Surgical: 1) R shoulder surgery 2) L elbow surgery 3) Spinal surgery 2012 - T10-S1 fusion, L1-S1 decompression Social: Smokes 6-7 cigarettes daily, minimal ETOH intake. Family: Both parents , CAD - mother had a CVA Allergies Allergy/AdvReac Type Severity Reaction Status Date / Time celecoxib AdvReac Unknown elevates Unverified 10/20/18 12:59 blood pressure rofecoxib AdvReac Unknown elevates Unverified 10/20/18 12:59 blood pressure Home Medications Home Medications Medication Instructions Recorded Confirmed Type ascorbic acid (vitamin C) [Vitamin 1,000 mg PO DAILY 10/20/18 10/20/18 History C] calcium carbonate [Calcium 600] 600 mg PO DAILY 10/20/18 10/20/18 History clonidine HCl 0.1 mg PO HS 10/20/18 10/20/18 History esomeprazole magnesium 40 mg PO DAILY 10/20/18 10/20/18 History gabapentin 60 mg PO QID 10/20/18 10/20/18 History glucos sul [id number]-C-Mn 1 cap PO DAILY 10/20/18 10/20/18 History [Glucosamine Chondroitin] levothyroxine 75 mcg PO DAILY 10/20/18 10/20/18 History meloxicam 7.5 mg PO DAILY 10/20/18 10/20/18 History methocarbamol 750 mg PO TID 10/20/18 10/20/18 History multivitamin 1 tab PO DAILY 10/20/18 10/20/18 History topiramate 50 mg PO BID 10/20/18 10/20/18 History tramadol 50 - 100 mg PO TID PRN 10/20/18 10/20/18 History triamterene-hydrochlorothiazid 1 tab PO DAILY 10/20/18 10/20/18 History vitamin E 0 unit PO DAILY 10/20/18 10/20/18 History Past Med/Surg History Medical History No significant past medical history Social History Preferred Language: [place] Communication Ability: Effective Communication Ability Comment: some slurring, able to sign name Clinical Rehabilitation Aide Required: No Beliefs That Will Affect Care: None marital status: single Current Living Situation: Significant Other Current Living Situation Comment: Lives with Alexandria Gordon, friend current occupational status: retired Other Information That Helps Us Care for You: No Feels Safe at Home: Yes Safety Concerns: Feels Safe At This Time Smoking Status: Current every day smoker Tobacco Type: cigarettes Cigarettes Per Day: 6 tp 7 Do You Dip or Chew Tobacco: No Second Hand Exposure: No Tobacco Cessation Education Requested by Patient: No Hx Alcohol Use: Yes Hx Substance Use: No Review of Systems Review of Systems: Gen: Denies fevers, night sweats, rigors, fatigue, malaise, weight loss/gain ENT: Denies congestion, throat pain, hearing loss Eyes: Denies acute visual changes CV: Denies CP, palpitations Pulmonary: Denies SOB, cough, wheezing GI: Denies N/V, diarrhea, constipation Neuro: She describes "one side not feeling like the other" She was aware that she could not get words out or clearly understand what was being said at the time of arrival. She stated that her R side felt weak Musculoskeletal: Chronic back pain, chronic R weakness, chronic L numbness as per HPI Endocrine: Denies polydipsia, polyuria Skin: Denies acute rashes or ulcers Physical Exam Physical Exam: General: AAO x 3, no distress ENT: No erythema or exudates, no thrush - R facial droop is prominent Eyes: CAITLYN, EOMI Head and neck: Normocephalic, atraumatic, No JVD, neck is supple. Chest/heart: Nontender, S1,2, RRR, no murmurs, no gallops Lungs: CTAB, no wheezing or crackles Abdomen: Nontender, nondistended, BS+ Neuro: Her speech has become clear, however, she seems to have persistent minor difficulty with expression. The exam is somewhat compromised by her chronic deficits. Occular muscles are intact and there are no field deficits. In general, a facial droop and mild dysphasia persist, she has mild weakness on her R side - both upper and lower ext. She was able to coordinate her movements slowly. Musculoskeletal: No joint inflammation, muscle tenderness, FROM Skin: No acute rashes or ulcers Extremities: No clubbing, cyanosis, edema Results & Data Vital Signs (Past 12 Hours) Vital Signs Temp Pulse Pulse Resp BP BP Pulse Ox 10/20/18 14:31 60 16 169/98 H 98 10/20/18 14:30 65 13 98 10/20/18 14:20 60 18 170/95 H 99 10/20/18 14:17 58 L 16 179/96 H 100 10/20/18 14:15 81 16 79 L 10/20/18 13:41 60 17 192/99 H 100 10/20/18 13:40 98.1 F 59 L 16 100 10/20/18 13:38 56 L 17 183/102 H 99 10/20/18 13:32 58 L 19 99 10/20/18 13:31 60 16 183/125 H 98 10/20/18 13:30 98.2 F 55 L 16 99 10/20/18 13:22 65 13 170/101 H 98 10/20/18 13:20 70 25 H 98 10/20/18 13:10 59 L 17 181/103 H 98 10/20/18 13:00 63 17 146/99 H 97 10/20/18 12:50 60 16 154/101 H 98 10/20/18 12:41 58 L 16 166/85 H 97 10/20/18 12:37 61 16 145/71 H 98 10/20/18 12:36 98.1 F 60 15 154/96 H 96 10/20/18 12:19 97 10/20/18 12:08 98.2 F 62 18 145/71 H 98 10/20/18 12:06 98.1 F 66 58 H 154/[address] head, CTA head/neck: No acute abnormalities EKG: NSR PG Care Time/CCT Total # of Minutes Spent Total Time Spent with Patient: Total time spent is greater than 50% in coordination of care (as documented) at patient's floor/unit and/or counseling patient: (1) Stroke CVA mechanism: unspecified Qualified Code(s): I63.9 - Cerebral infarction, unspecified
[2018-10-20] MEDS: CLOPIDOGREL BISULFATE 300 MG TAB PO STA ×2 (15:37→17:15)
[2018-10-20 16:04] LABS: Appearance Urine Clear (Clear); Bilirubin Urine Negative (Negative); Blood Urine Negative (Negative); Color Urine Yellow; Glucose Urine UA Negative (Negative); Ketones Urine Negative (Negative); Leukocyte Esterase Urine Negative (Negative); Nitrite Urine Negative (Negative); Protein Urine Negative (Negative); Specific Gravity Urine 1.024 (1.000-1.030); Urobilinogen Urine Negative (Negative)
--- NOTE | 2018-10-20 16:26 | Magnetic Resonance Report ---
MR brain wo con HISTORY: 62 years-old Female ?stroke, weakness/dysarthria acute strokelike symptoms COMPARISON: CT head, CTA head and neck of same day TECHNIQUE: Multiplanar multisequence MRI of the brain was obtained without the use of IV contrast. FINDINGS: Hardboard Supervisor localizer images demonstrate no gross extracranial abnormality. Ill-defined 8 x 8 mm area of re stricted diffusion about the left paramedian thalamus, image 13 series 5 is noted with mildly increas ed T2/FLAIR signal and slightly decreased signal on ADC map. No acute or subacute territorial infarct identified. There is no acute intracranial hemorrhage, midline shift, abnormal extra-axial collectio n, hydrocephalus or intracranial mass. Mild degree of patchy T2/flair hyperintensities about the whit e matter suggest chronic microvascular ischemic disease. There is a remote lacunar infarction noted a bout the inferior right cerebellar hemisphere. The major flow voids at the level of the skull base appear to be patent. Mastoid air cells are clear. Mild mucosal thickening about the frontal and ethmoid sinuses. T1 hypointense and slightly T1 hyperi ntense ovoid circumscribed lesion of the posterior left parietal scalp measures 1.5 x 0.9 cm. Skull a nd soft tissues are otherwise unremarkable. The orbits are also within normal limits. IMPRESSION: 1. Subcentimeter acute appearing lacunar infarction of the left thalamus. 2. No acute or subacute territorial infarction, midline shift, or acute intracranial hemorrhage. 3. Suggestion of mild chronic microvascular ischemic disease. The above report was generated using voice recognition software. It may contain grammatical, syntax o r spelling errors. Electronically signed by: Jorge Keller M.D. 10/20/2018 4:25 PM
[2018-10-20] MEDS ORDERED: TRAMADOL HCL 50 MG TABLET PO STA (17:02)
[2018-10-20] MEDS ORDERED: CLOPIDOGREL BISULFATE 300 MG TAB ONE (17:12)
[2018-10-20] MEDS ORDERED: PHARMACIST DISCHARGE MED REC CONSULT PRN (18:21)
[2018-10-20] MEDS ORDERED: MAGNESIUM HYDROXIDE SUSP 30 ML UDC PO PRN (18:21)
[2018-10-20] MEDS ORDERED: ONDANSETRON INJ 2 MG/ML 2 ML VIAL IV PRN (18:21)
[2018-10-20] MEDS ORDERED: D5W AND NSS 1,000 ML IV SCH (18:21)
[2018-10-20] MEDS ORDERED: POLYETHYLENE (MIRALAX) 17 GM PACK PO PRN (18:21)
[2018-10-20] MEDS ORDERED: TRAMADOL HCL 50 MG TABLET PO PRN (18:21)
[2018-10-20] MEDS ORDERED: ALUMINUM/MAGNESIUM SUSP 30 ML UDC PO PRN (18:21)
[2018-10-20] MEDS ORDERED: ACETAMINOPHEN 325 MG TAB PO PRN (18:21)
[2018-10-20] MEDS: GABAPENTIN 600 MG TAB PO SCH ×2 (19:30→23:26)
[2018-10-20] MEDS ORDERED: ATORVASTATIN 40 MG TAB PO SCH (21:00)
[2018-10-20] MEDS: TOPIRAMATE 50 MG TAB PO SCH (23:26)
[2018-10-20] MEDS: HEPARIN SOD 5,000 UNIT/0.5 ML VIAL SQ SCH (23:28)
[2018-10-21] MEDS: HEPARIN SOD 5,000 UNIT/0.5 ML VIAL SQ SCH (05:49)
[2018-10-21] MEDS ORDERED: LEVOTHYROXINE SODIUM 75 MCG TABLET PO SCH (06:30)
[2018-10-21 06:56] LABS: Basophils # (auto) 0.02 K/uL (0-0.2); Basophils % (auto) 0.4 %; Eosinophils # (auto) 0.12 K/uL (0-0.5); Eosinophils % (auto) 2.3 %; Hematocrit (blood only) 42.7 % (37-47); Hemoglobin 14.5 g/dL (12.0-16.0); Immature Granulocytes # (auto) 0.01 K/uL (0.00-0.02); Immature Granulocytes % (auto) 0.2 %; Lymphocytes # (auto) 2.35 K/uL (1.2-3.4); Lymphocytes % (auto) 44.4 %; Mean Corpuscular Volume 97.7 fL (80-100); Mean Platelet Volume 9.3 fL (7.4-10.4); Monocytes # (auto) 0.64 K/uL (0.11-0.59); Monocytes % (auto) 12.1 %; Neutrophils # (auto) 2.15 K/uL (1.4-6.5); Neutrophils % (auto) 40.6 %; Platelet Count 232 K/uL (130-400); RDW Coefficient of Variation 12.3 % (11.5-14.5); RDW Standard Deviation 44.3 fL (36.4-46.3); Red Blood Count 4.37 M/uL (4.2-5.4); White Blood Count 5.29 K/uL (4.8-10.8)
[2018-10-21 07:32] LABS: Calcium 8.4 mg/dl (8.5-10.1); Creatinine Clr Calc Pharmacy 86.8 ml/min; Est GFR (African American) 107.7; Est GFR (Non-African American) 92.9; Potassium 3.5 mmol/L (3.5-5.1)
[2018-10-21] MEDS ORDERED: PANTOprazole 40 MG TAB PO SCH (09:00)
[2018-10-21] MEDS ORDERED: CLOPIDOGREL BISULFATE 75 MG TAB PO SCH (09:00)
[2018-10-21] MEDS ORDERED: ASPIRIN 81 MG ECTAB PO SCH (09:00)
--- NOTE | 2018-10-21 09:21 | Neurology Consultation ---
Date of Consultation October 21, 2018 Assessment & Plan (1) Stroke: Acute ischemic infarct within the left thalamus presenting with a right hemiparesis and probable thalamic aphasia. This patient appears to be significantly improved this morning although she continues to have some subtle, persistent, speech disfluency. Stroke risk factors for this patient include hypertension and cigarette smoking. I agree with starting antiplatelet therapy for this patient. However, I would recommend using one antiplatelet drug at time of discharge. Daily low-dose aspirin would be appropriate. However, if she were to develop a recurrence of gastritis while on aspirin therapy then it would be reasonable to switch to clopidogrel. I would not typically recommend both aspirin and Plavix for long-term stroke prevention. Agree with starting atorvastatin. Follow-up with results of echocardiogram. Patient will need consultations with PT/OT/speech therapy. Smoking cessation counseling. No further immediate recommendations. Please contact me if I may be of further assistance. History of Present Illness Reason for Consultation: Stroke Requesting Physician: Nilson Najera MD Attending Physician: Jarret Tang DO History of Present Illness The patient is a 62-year-old female with a chief complaint of right-sided weakness and associated change in speech. She noticed her symptoms upon awakening yesterday morning. Her speech change worsened temporarily while she was in the emergency department and was described as severe dysarthria. Right- sided weakness was felt to be mild. This morning, the patient feels notably improved although she is still aware of some subtle difficulty with speech fluency and word finding but denies any problems with speech comprehension. She denies any significant weakness or numbness affecting the right side of the body at this time. She denies headache or change in vision. A tele-stroke consultation had been obtained during her assessment in the emergency department yesterday. However, as she awoke with her symptoms, she was not felt to be an appropriate candidate for TPA. Past medical history notable for hypertension, migraines, and spinal stenosis. She does not take a baby aspirin or other blood thinners as an outpatient. No known history of stroke or TIA. Family history noncontributory Allergies Allergy/AdvReac Type Severity Reaction Status Date / Time celecoxib AdvReac Unknown elevates Unverified 10/20/18 12:59 blood pressure rofecoxib AdvReac Unknown elevates Unverified 10/20/18 12:59 blood pressure Home Medications Home Medications Medication Instructions Recorded Confirmed Type ascorbic acid (vitamin C) [Vitamin 1,000 mg PO DAILY 10/20/18 10/20/18 History C] calcium carbonate [Calcium 600] 600 mg PO DAILY 10/20/18 10/20/18 History clonidine HCl 0.1 mg PO HS 10/20/18 10/20/18 History esomeprazole magnesium 40 mg PO DAILY 10/20/18 10/20/18 History gabapentin 600 mg PO QID 10/20/18 10/20/18 History glucos sul [id number]-[id number]-htamy-C-Mn 1 cap PO DAILY 10/20/18 10/20/18 History [Glucosamine Chondroitin] levothyroxine 75 mcg PO DAILY 10/20/18 10/20/18 History meloxicam 7.5 mg PO DAILY 10/20/18 10/20/18 History methocarbamol 750 mg PO TID 10/20/18 10/20/18 History multivitamin 1 tab PO DAILY 10/20/18 10/20/18 History topiramate 50 mg PO BID 10/20/18 10/20/18 History tramadol 50 - 100 mg PO TID PRN 10/20/18 10/20/18 History triamterene-hydrochlorothiazid 1 tab PO DAILY 10/20/18 10/20/18 History vitamin E 0 unit PO DAILY 10/20/18 10/20/18 History Patient History Medical History No significant past medical history Social History Preferred Language: Malian Communication Ability: Effective Communication Ability Comment: some slurring, able to sign name Stair Builder Required: No Beliefs That Will Affect Care: None marital status: single Current Living Situation: Significant Other Current Living Situation Comment: Lives with Alexandria Gordon, friend current occupational status: retired Other Information That Helps Us Care for You: No Feels Safe at Home: Yes Safety Concerns: Feels Safe At This Time Smoking Status: Current every day smoker Tobacco Type: cigarettes Cigarettes Per Day: 6 tp 7 Do You Dip or Chew Tobacco: No Second Hand Exposure: No Tobacco Cessation Education Requested by Patient: No Hx Alcohol Use: Yes Hx Substance Use: No Review of Systems Constitutional: no fever and no chills Eyes: no blind spots and no diplopia Ear, Nose, Mouth, Throat: no ear pain and no hearing loss Respiratory: no cough and no dyspnea Cardiovascular: no chest pain and no palpitations Gastrointestinal: no abdominal pain and no vomiting Genitourinary: no dysuria Musculoskeletal: no myalgia Integumentary: no rash and no lesions Neurologic: as per Subjective / HPI Psychiatric: no depression and no anxiety Hematologic / Lymphatic: no easy bleeding Physical Exam Physical Exam: The patient is a well-developed, well-nourished elderly female. She is alert and fully oriented. Recent and remote memory intact. Attention and concentration normal. Patient does exhibit a mild degree of speech disfluency with perhaps some mild difficulty with object naming. Speech comprehension intact. She exhibited mild difficulty with repetition. Patient exhibits an age-appropriate fund of knowledge and normal comprehension of vocabulary. Visual murphy full to confrontation. Visual acuity normal. Pupils equal round reactive to light and accommodation. Eye movements normal. Facial sensation intact. There is flattening of the right nasolabial fold. There is no gross facial droop. Hearing intact. Palate elevates to midline. Shoulder shrug intact. Tongue protrudes to midline. Sensation intact to all modalities in all 4 limbs. No obvious hemisensory deficit. Deep tendon reflexes are intact and symmetrical for the arms and legs. Plantar responses upgoing on the right, downgoing on the left. There is no dysdiadochokinesia or dysmetria [id number] or [id number] bilaterally. Ophthalmoscopic examination reveals normal-appearing optic disks and posterior segments. No papilledema or hemorrhages. Carotid pulses normal bilaterally, no bruits to auscultation. Gait and station normal. Patient exhibits normal muscle strength and tone for all 4 limbs. No atrophy. No abnormal movements observed. Results & Data Vital Signs (Past 12 Hours) Vital Signs Temp Pulse Pulse Resp BP Pulse Ox 10/21/18 08:21 36.5 C 59 L 16 146/98 H 97 10/21/18 03:23 36.8 C 63 17 165/93 H 97 10/21/18 00:49 59 L 10/20/18 23:25 36.9 C 58 L 17 136/85 97 Laboratory Results Recently completed labs reviewed. WBC 5.29, hemoglobin 14.5, hematocrit 42.7, platelet count 232, sodium 143, potassium 3.5, BUN 13, creatinine 0.67, glucose 126, calcium 8.4, transaminases normal, a lipid panel reveals elevated triglycerides, 259. Diagnostic Findings A CT of the head completed yesterday was negative for hemorrhage or acute process. Images and report reviewed. CT angiography of the head and neck completed yesterday were unremarkable. No significant stenosis, occlusion, or aneurysm. 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 MRI of the brain reveals an 8 x 8 mm acute infarct within the left thalamus. There is chronic microvascular ischemic change as well. Images and report reviewed. An electrocardiogram reveals a sinus rhythm with premature atrial complexes, 61 bpm. (1) Stroke CVA mechanism: unspecified Qualified Code(s): I63.9 - Cerebral infarction, unspecified
[2018-10-21] MEDS: GABAPENTIN 600 MG TAB PO SCH ×2 (12:22→13:00)
[2018-10-21] MEDS: TOPIRAMATE 50 MG TAB PO SCH (12:23)
[2018-10-21] MEDS ORDERED: STROKE PATIENT DISCHARGE STA (14:01)
--- NOTE | 2018-10-21 14:07 | Discharge Summary ---
Date of Service October 21, 2018 Admission HPI Per Admitting Provider 62 y/o F Hx HTN, migraines, hypothyroidism, spinal stenosis, chronic RUE undetermined etiology, chronic LUE numbness which followed elbow surgery. The pt woke up from sleep with an unsteady gait, slurred speech - expressive and receptive dysphasia and a R facial droop. She was brought to the ER by her partner. She was evaluated by telestroke on arrival, however, as she woke form sleep with her symptoms, a time of symptom onset could not be established and TPA was not employed. Nursing staff noted that her speech appeared to be worsening while in the ER as she seemed to develop complete aphasia for a short period. She did appear to recover her speech to near-normal at the time of medical evaluation however. Initial CT/CTA were negative for acute abnormalities. PMH: 1) Spinal stenosis 2) Migraine headaches 3) Hypothyroidism 4) Chronic LUE numbness followed surgery on the arm 5) HTN 6) NSAID-induced gastritis, esophagitis, gastric ulcers 7) The pt takes Clonidine HS which she states she was prescribed for a forceful heart beat which was causing insomnia. Surgical: 1) R shoulder surgery 2) L elbow surgery 3) Spinal surgery 2012 - T10-S1 fusion, L1-S1 decompression Social: Smokes 6-7 cigarettes daily, minimal ETOH intake. Family: Both parents , CAD - mother had a CVA Principal Diagnosis CVA, with aphasia (improving) Discharge Exam In general she is awake and alert pleasant no distress. HEENT normal cephalic atraumatic mucous members moist. Speech is somewhat broken with difficulty in word finding. Gait is slightly wide-based and shuffling but she and her roommate both note that this is her baseline. Breathing unlabored no accessory muscle use good effort. Skin shows no rashes no pallor or icterus. Discharge Data Allergies Allergy/AdvReac Type Severity Reaction Status Date / Time celecoxib AdvReac Unknown elevates Unverified 10/20/18 12:59 blood pressure rofecoxib AdvReac Unknown elevates Unverified 10/20/18 12:59 blood pressure Consultations 10/20/18 14:44 ED Decision to Admit Stat 10/20/18 18:21 Consult Case Management - Discharge Planning Routine Consult Neurology Routine 10/21/18 13:47 Consult Case Management - Discharge Planning Routine Ordered Studies 10/20/18 12:08 CT head/brain wo con Stat 10/20/18 12:43 CT angio head w con Stat CT angio neck with con Stat HEAD & NECK CTA HISTORY: aphasia, R weakness TECHNIQUE: Multiaxial CT images of the head were performed following the intravenous administration of contrast to evaluate the major cerebral vessels. Multiaxial CT images of the neck were also performed following the intravenous administration of contrast to evaluate the major cervical vessels. Maximum inten sity projection images were also obtained. A dose lowering technique was utilized adhering to the principles of ALARA. COMPARISON: Head CT 10/20/2018. FINDINGS: There is no mass, hematoma, midline shift, or acute infarct. Visualized intracranial internal carotid arteries, distal vertebral arteries, and basilar artery are widely patent. There is no significant stenosis, occlusion, or aneurysm seen within the bilateral ACAs, MCAs, or decommissioning well site manager. The posterior cerebral arteries are fed primarily through the posterior communicating arteries consistent with a normal variant. The aortic arch and proximal great vessels are widely patent. There is no significant stenosis, occlusion, or dissection identified within the bilateral common carotid, internal carotid, or vertebral arteries. Incidental note is made of an aberrant right subclavian artery. Mild calcified plaque within the right carotid bifurcation. IMPRESSION: 1. No significant stenosis, occlusion, or aneurysm within the alturas of [place]. 2. No significant stenosis, occlusion, or dissection identified within the carotid or vertebral arteries.. 3. Incidental note is made of an aberrant right subclavian artery. Electronically signed by: Jere Muniz M.D. 10/20/2018 2:37 PM 10/20/18 14:50 MR brain wo con Stat MR brain wo con HISTORY: 62 years-old Female ?stroke, weakness/dysarthria acute strokelike symptoms COMPARISON: CT head, CTA head and neck of same day TECHNIQUE: Multiplanar multisequence MRI of the brain was obtained without the use of IV contrast. FINDINGS: Potato Chip Maker localizer images demonstrate no gross extracranial abnormality. Ill- defined 8 x 8 mm area of restricted diffusion about the left paramedian thalamus, image 13 series 5 is noted with mildly increased T2/FLAIR signal and slightly decreased signal on ADC map. No acute or subacute territorial infarct identified. There is no acute intracranial hemorrhage, midline shift, abnormal extra-axial collection, hydrocephalus or intracranial mass. Mild degree of patchy T2/flair hyperintensities about the white matter suggest chronic microvascular ischemic disease. There is a remote lacunar infarction noted about the inferior right cerebellar hemisphere. The major flow voids at the level of the skull base appear to be patent. Mastoid air cells are clear. Mild mucosal thickening about the frontal and ethmoid sinuses. T1 hypointense and slightly T1 hyperintense ovoid circumscribed lesion of the posterior left parietal scalp measures 1.5 x 0.9 cm. Skull and soft tissues are otherwise unremarkable. The orbits are also within normal limits. IMPRESSION: 1. Subcentimeter acute appearing lacunar infarction of the left thalamus. 2. No acute or subacute territorial infarction, midline shift, or acute intracranial hemorrhage. 3. Suggestion of mild chronic microvascular ischemic disease. The above report was generated using voice recognition software. It may contain grammatical, syntax or spelling errors. Electronically signed by: Jorge Keller M.D. 10/20/2018 4:25 PM Hospital Course (1) Stroke: 62 y/o F Hx HTN, migraines, hypothyroidism, spinal stenosis, chronic RUE undetermined etiology, chronic LUE numbness which followed elbow surgery. The pt woke up from sleep with an unsteady gait, slurred speech - expressive and receptive dysphasia and a R facial droop. She was brought to the ER by her partner. She was evaluated by telestroke on arrival, however, as she woke form sleep with her symptoms, a time of symptom onset could not be established and TPA was not employed. Nursing staff noted that her speech appeared to be worsening while in the ER as she seemed to develop complete aphasia for a short period. She did appear to recover her speech to near-normal at the time of medical evaluation however. Initial CT/CTA were negative for acute abnormalities. 1) CVA - -No TPA warranted, MRI showed consistent findings with small vessel disease in the brain, no carotid embolic or cardioembolic source was noted based on imaging, cardiac monitoring, and echocardiogram. -Secondary risk reduction with smoke cessation (emphasized heavily multiple times the critical importance of smoke cessation), antiplatelet, statin, blood pressure control -Initiated atorvastatin, outpatient follow-up as appropriate -Initiated 81 mg of aspirin -Continue current blood pressure medicines but much closer outpatient monitoring at home -Stop anti-inflammatories, including meloxicam 2) HTN -follow closely as an outpatient, continue current meds, but asked her to do a lot of home monitoring to have more overall baseline of readings to base medication changes off of 3) Migraines - cont topiramate 4) Chronic back and UE pain - cont Gabapentin, PRN Tramadol. Advised cessation of all anti-inflammatories including meloxicam due to stroke 5) tobacco abuserepeatedly advised on smoking cessation Total Time Total Time Spent Total Time Spent (In Minutes): Greater than 30 Discharge Plan Discharge Items Patient Disposition: Home - Home Health Services Reason For Visit: CVA Discharge Diagnosis: stroke Discharge Goals: Diagnostic testing, Improve function and Therapeutic intervention Activity: Resume your previous activity Non-emergency contact: Primary Care Provider and Neurologist Call non-emergency contact if: you have any medication questions and your symptoms worsen Follow-up/Referrals: PCP,ELINA [Primary Care Provider] - Diet: Heart Healthy Addtl Provider Instructions: Stroke -As we discussed, a stroke is a blockage of blood flow leading to a small area of and damaged brain tissue -Your stroke fortunately is only showing that you have minor functional problems, and with time and therapy should recover well -Your stroke appears to have been brought about by hardening/clogging of small blood vessels in your brain predominantly from smoking, but also from effects of blood pressure and cholesterol -It is absolutely critical to your long-term well-being to stop smoking entirely. Cutting back is better than smoking heavily, but in the same way that shooting your self in the foot is better than shooting your self in the leg. -Blood pressure control is a "moving target" shortly after a stroke. For the next few days it would be preferred that you run a little bit high (in the 140- 160 systolic range) and then over the next few weeks getting down to persistently 110-120/70-80. For now we will not change anything about your blood pressure medicines, but we would recommend that you get a cuff and follow your numbers closely at home. -Because anti-inflammatories interfere with the production of a chemical that allows blood vessels to dilate, people are more likely to have strokes (or heart attacks) on days that they take anti-inflammatories, compared to days that they do not. Because of this it would make sense for you to not take meloxicam anymore. Consider substituting Tylenol arthritis, a surprising number of people find that it works better than they expect it to. -We will have therapy continue to work with you at home, and in addition to formal therapy, spend a lot of time doing what therapy teaches you to do, as well as other things that will improve the fluency of your speech, such as reading out loud. -As a mild blood thinner, aspirin does increase risk of bleeding and bruising, although not usually in a concerning way. If you have a nosebleed or cut, hold pressure on it for 10 minutes, and that should remedy the situation. If for whatever reason 10 minutes does not fix the bleeding, then it would be worth a trip to the office or hospital depending on time and severity. -Lipitor is usually quite well-tolerated, again the main reason for taking it it is that it will stabilize the plaques that are already in your arteries, although by lowering your cholesterol it should also help reduce the creation of new plaques. A small percentage of people (less than 1%) do develop muscle aches with medicines like this. It would not be an accentuation or amplification of aches you already have, but rather something completely different almost like having the flu. If this happens stopping the medicine has the pains and aches go away. Your primary care doctor will also be following liver enzymes, although true/concerning liver abnormalities with statins are an extreme rarity Shoulder pain -Your shoulder pain seems most consistent with a rotator cuff tendinitis -Given that you have been trying conservative treatment at home without improvement, we will escalate treatment -We have added a topical anti-inflammatory (diclofenac gel, much safer than taking a whole body anti-inflammatory given that it does not have much whole body absorption) that we would want you to use 3-4 times a day every day. It does not work very well on a "as-needed basis" but generally if you use it routinely for a few days it starts to kick in nicely -In addition to the anti-inflammatory gel, when physical therapy is working with you we would want them to work with you for your shoulder in addition to the stroke -If 2 or 3 weeks goes by with no improvement with this plan, we would want you to see Dr. Aleman to escalate treatment for your shoulder Prescriptions: New aspirin [Ecotrin Low Strength] 81 mg Tablet,Delayed Release (Dr/Ec) 81 mg PO QAM Qty: 30 RF: 0 atorvastatin 40 mg Tablet 40 mg PO HS Qty: 30 RF: 0 Continued multivitamin Tablet 1 tab PO DAILY RF: 0 vitamin E 1,000 unit Capsule PO DAILY RF: 0 ascorbic acid (vitamin C) [Vitamin C] 1,000 mg Tablet 1,000 mg PO DAILY RF: 0 clonidine HCl 0.1 mg Tablet 0.1 mg PO HS RF: 0 gabapentin 600 mg tablet 600 mg PO QID RF: 0 levothyroxine 75 mcg tablet 75 mcg PO DAILY RF: 0 calcium carbonate [Calcium 600] 600 mg calcium (1,500 mg) Tablet 600 mg PO DAILY RF: 0 methocarbamol 750 mg tablet 750 mg PO TID RF: 0 esomeprazole magnesium 40 mg capsule,delayed release(DR/EC) 40 mg PO DAILY RF: 0 triamterene-hydrochlorothiazid 37.5-25 mg Tablet 1 tab PO DAILY RF: 0 topiramate 50 mg tablet 50 mg PO BID RF: 0 Glucosamine Chondroitin 550-30-1 mg Capsule 1 cap PO DAILY RF: 0 tramadol 50 mg tablet 50 - 100 mg PO TID PRN (Reason: Pain) RF: 0 Discontinued meloxicam 7.5 mg tablet 7.5 mg PO DAILY RF: 0 Stand-Alone Forms: [facility] Discharge Orders: Discharge Order (Routine); Ordered 10/21/18 Ordered By: Jarret Tang Admission Data Admit Date/Time: 10/20/18 15:47 Attending Provider: Jarret Tang Admit Provider: Nilson Najera Primary Care Provider: PCP,NO Other Providers: Nilson Najera ; Nash Turner Service: Telemetry
--- NOTE | 2018-10-21 14:58 | Pharmacy Report ---
Pharmacist Stroke Counseling - Date of Service October 21, 2018 - Scope: Pharmacy has been consulted to provide medication discharge counseling for this patient admitted with ischemic stroke as per the Pharmacist Discharge Counseling for Stroke Patients Protocol. - Medications on Discharge: Home Medications Medication Instructions Recorded Confirmed ascorbic acid (vitamin C) [Vitamin 1,000 mg PO DAILY 10/20/18 10/20/18 C] calcium carbonate [Calcium 600] 600 mg PO DAILY 10/20/18 10/20/18 clonidine HCl 0.1 mg PO HS 10/20/18 10/20/18 esomeprazole magnesium 40 mg PO DAILY 10/20/18 10/20/18 gabapentin 600 mg PO QID 10/20/18 10/20/[address] glucos sul [id number] 1 cap PO DAILY 10/20/18 10/20/18 [Glucosamine Chondroitin] levothyroxine 75 mcg PO DAILY 10/20/18 10/20/18 meloxicam 7.5 mg PO DAILY 10/20/18 10/20/18 methocarbamol 750 mg PO TID 10/20/18 10/20/18 multivitamin 1 tab PO DAILY 10/20/18 10/20/18 topiramate 50 mg PO BID 10/20/18 10/20/18 tramadol 50 - 100 mg PO TID PRN 10/20/18 10/20/18 triamterene-hydrochlorothiazid 1 tab PO DAILY 10/20/18 10/20/18 vitamin E 0 unit PO DAILY 10/20/18 10/20/18 New Rx's Medication Instructions Recorded aspirin 81 mg PO DAILY #30 tab 10/21/18 aspirin [Ecotrin Low Strength] 81 mg PO QAM #30 tab 10/21/18 atorvastatin 40 mg PO HS #30 tab 10/21/18 atorvastatin 40 mg PO HS #30 tab 10/21/18 diclofenac sodium 2 gm TOP QID #100 gm 10/21/18 diclofenac sodium 2 gm TOP QID #100 gm 10/21/18 - Action: The above medications, specifically ones for stroke treatment/prophylaxis, have been reviewed in detail with the patient and patient field representative, Mellisa prior to discharge. This includes indication, common adverse reactions, drug interactions, and medication administration. Medication counseling has been employed using the teach-back method to ensure understanding. - Outcome: The patient and Mellisa have demonstrated understanding of the medications. Please note, they are aware that the pharmacist will call them within 72 hours post-discharge to confirm that the appropriate medications are being taken and answer any further medication related questions the patient might have at that time. Contact information Individual to be contacted: Mellisa or patient Relationship to patient (if applicable): friend/roommate (per patient okay to speak with Mellisa regarding her medications) Phone number: [phone] Best time to call: anytime Additional comments: Patient and her friend Mellisa were very receptive to teaching. Mellisa is also on aspirin. They understand the importance of these medications. Thank you for allowing pharmacy to be involved in the care of this patient. Please call [phone] or [phone] with any additional questions
[2018-10-22 06:14] LABS: Estimated Average Glucose 137 mg/dl; Hemoglobin A1C 6.4 % (4.5-5.6)
--- NOTE | 2018-10-23 11:00 | Pharmacy Report ---
Pharmacist Post D/C Phone Note - Phone Note: Date of phone call: October 23, 2018. Individual with whom pharmacist spoke to: Shiloh Gordon- patient's roommate The following questions were reviewed during the phone call with responses listed below each: What questions do you have about your medications? - No current questions. What problems are you having obtaining your medications? - Medication was not filled at pharmacy- was given one atorvastatin until filled When is your next appointment with your primary care doctor? - Waiting at office for visit at time of call Additional comments: - Patient had difficulty getting prescriptions filled but was told they would be ready today. She was given a single dose of atorvastatin for yesterday's dos e. Patient and Alexandria were at the doctor's office for follow-up at time of call. As patient had not initiated more than a day of therapy/yet to forklift picker and was at follow-up with doctor call was shortened. Encouraged patient/Alexandria to ask any questions at the doctors office or to give us a call at the pharmacy if she had any questions regarding medications/side effects etc. . .she verbalized understanding and no current questions for me. As per the Pharmacist Discharge Counseling for Stroke Patients Protocol, this phone call has been completed within 72 hours of discharge. Thank you for allowing us to be involved in the care of this patient. Thank you for allowing us to be involved in the care of this patient. - Home Medications: Home Medications Medication Instructions Recorded Confirmed Glucosamine Chondroitin 1 cap PO DAILY 10/20/18 10/20/18 ascorbic acid (vitamin C) [Vitamin 1,000 mg PO DAILY 10/20/18 10/20/18 C] calcium carbonate [Calcium 600] 600 mg PO DAILY 10/20/18 10/20/18 clonidine HCl 0.1 mg PO HS 10/20/18 10/20/18 esomeprazole magnesium 40 mg PO DAILY 10/20/18 10/20/18 gabapentin 600 mg PO QID 10/20/18 10/20/18 levothyroxine 75 mcg PO DAILY 10/20/18 10/20/18 methocarbamol 750 mg PO TID 10/20/18 10/20/18 multivitamin 1 tab PO DAILY 10/20/18 10/20/18 topiramate 50 mg PO BID 10/20/18 10/20/18 tramadol 50 - 100 mg PO TID PRN 10/20/18 10/20/18 triamterene-hydrochlorothiazid 1 tab PO DAILY 10/20/18 10/20/18 vitamin E 0 unit PO DAILY 10/20/18 10/20/18 New Rx's Medication Instructions Recorded aspirin 81 mg PO DAILY #30 tab 10/21/18 aspirin [Ecotrin Low Strength] 81 mg PO QAM #30 tab 10/21/18 atorvastatin 40 mg PO HS #30 tab 10/21/18 atorvastatin 40 mg PO HS #30 tab 10/21/18 diclofenac sodium 2 gm TOP QID #100 gm 10/21/18 diclofenac sodium 2 gm TOP QID #100 gm 10/21/18
== END 2018-10-21 15:45 | disposition home health service (06) | DRG 65 ==
LOC: ED 12:20 → 2E 15:20 → SUATTDRO 15:47